=== PATIENT | male | born 1935 | race Caucasian/White ===

== ENCOUNTER 2021-06-29 22:57 | Emergency (ER) | payer OTHER ==
[~2021-06-29] VITALS: Ht 190.5 cm; Wt 136.1 kg
--- NOTE | ~2021-06-29 | EMS ---
[address] [address] EMS Patient Care Report Name: CATHERINE KEVIN Room #: REG M.R.#: [id number] Admission: 06/29/21 Attend Phys: Discharge: Date of : 37 Report #: [id number] THIS REPORT FOR: //name// Report Transmitted: 06/29/2021 22:43 EMS Care Summary [place], [place]/[facility] Incident [id number] @ 06/29/2021 22:23 Incident Location [address] [facility] Patient CATHERINE KEVIN Male, 86 Years 1935 Patient Address [address] [address] Patient History Pacemaker/AICD, Patient Allergies No known allergies, Patient Medications None Reported, Chief Complaint ear and finger lac/fall Disposition Transported No Lights/[place] Dispatch Reason Falls Transported To [facility] Narrative pt found seated on floor in doorway to bedroom. he is a&o and reports he stumbled and fell, hitting his head on the door way. no LOC. pt saw him fall and called for help. pt has swelling and lac to R ear and lac to tip of [address] [address] EMS Patient Care Report Name: CATHERINE KEVIN Room #: REG MTaiR.#: [id number] Admission: 06/29/21 Attend Phys: Discharge: Date of : 37 Report #: [id number] little finger on R hand. he denies any other injury. he is initially refusing to go to ER. pt eventually agrees when we explain the reason he needs an exam. we assist him to a standing position. he is able to pivot to cot, VS, transport w/o incident to [facility]. Initial Vitals @22:45P: 80,R: 16,BP: 123/66,Pain: 4/10,GCS: 15,SpO2: 95,Revised Trauma: 12, Assessments @22:32MENTAL:No Abnormalities,SKIN:No Abnormalities,HEENT:Head/Face: HEM,Head/Face: Other,LUNG SOUNDS:General: No Abnormalities,ABDOMEN:General: No Abnormalities,PELVIS//GI:No Abnormalities,EXTREMITIES:Right Arm: HEM,Right Arm: Other,Left Leg: Other,Right Leg: Other,PULSE:NEURO:No Abnormalities, Impression Injury of Ear Procedures @22:32 ALS Assessment Response: UnchangedSucceeded @22:35 Bandaging Response: UnchangedSucceeded @22:38 Stretcher Response: Unchanged Timeline 22:22,Call Received 22:22,Dispatch Notified 22:23,Dispatched 22:24,En Route 22:30,On Scene 22:32,At Patient 22:32,ALS Assessment,Response: UnchangedSucceeded, 22:35,Bandaging,Response: UnchangedSucceeded, 22:38,Stretcher,Response: Unchanged 22:45,BP: 123/66 M,PULSE: 80,RR: 16 R,SPO2: 95 Ox,ETCO2: ,BG: ,PAIN: 4,GCS: 15, 22:51,Depart Scene 22:54,At Destination 23:05,Call Closed Disclaimer v1.1 Copyright 2021 [employer] This EMS Care Summary contains data elements from the applicable legal record (which may be displayed differently). It is designed to provide pertinent information for the following purposes: continuity of care, clinical quality, and state data reporting. The complete legal record is available to ED staff and administrators of the receiving hospital in [employer] Patient Tracker. All data is provided "as is."
--- NOTE | ~2021-06-29 | EMS ---
[address] [address] EMS Patient Care Report Name: CATHERINE KEVIN Room #: DEP WESLEY Cavazos#: [id number] Admission: 06/29/21 Attend Phys: Discharge: 06/30/21 Date of : 37 Report #: [id number] THIS REPORT FOR: //name// Report Transmitted: 07/01/2021 11:33 EMS Care Summary [place], [place]/[facility] Incident [id number] @ 06/29/2021 22:23 Incident Location [address] [facility] Patient CATHERINE KEVIN Male, 86 Years 1935 Patient Address [address] [facility] [place] [address] Patient History Pacemaker/AICD, Patient Allergies No known allergies, Patient Medications None Reported, Chief Complaint ear and finger lac/fall Disposition Transported No Lights/[place] Dispatch Reason Falls Transported To [facility] Narrative pt found seated on floor in doorway to bedroom. he is a&o and reports he stumbled and fell, hitting his head on the door way. no LOC. pt saw him fall and called for help. pt has swelling and lac to R ear and lac to tip of [address] [address] EMS Patient Care Report Name: CATHERINE KEVIN Room #: DEP M.R.#: [id number] Admission: 06/29/21 Attend Phys: Discharge: 06/30/21 Date of : 37 Report #: [id number] little finger on R hand. he denies any other injury. he is initially refusing to go to ER. pt eventually agrees when we explain the reason he needs an exam. we assist him to a standing position. he is able to pivot to cot, VS, transport w/o incident to [facility]. Initial Vitals @22:45P: 80,R: 16,BP: 123/66,Pain: 4/10,GCS: 15,SpO2: 95,Revised Trauma: 12, Assessments @22:32MENTAL:No Abnormalities,SKIN:No Abnormalities,HEENT:Head/Face: Other,Head/Face: HEM,LUNG SOUNDS:General: No Abnormalities,ABDOMEN:General: No Abnormalities,PELVIS//GI:No Abnormalities,EXTREMITIES:Right Leg: Other,Left Leg: Other,Right Arm: Other,Right Arm: HEM,PULSE:NEURO:No Abnormalities, Impression Injury of Ear Procedures @22:32 ALS Assessment Response: UnchangedSucceeded @22:35 Bandaging Response: UnchangedSucceeded @22:38 Stretcher Response: Unchanged Timeline 22:22,Call Received 22:22,Dispatch Notified 22:23,Dispatched 22:24,En Route 22:30,On Scene 22:32,At Patient 22:32,ALS Assessment,Response: UnchangedSucceeded, 22:35,Bandaging,Response: UnchangedSucceeded, 22:38,Stretcher,Response: Unchanged 22:45,BP: 123/66 M,PULSE: 80,RR: 16 R,SPO2: 95 Ox,ETCO2: ,BG: ,PAIN: 4,GCS: 15, 22:51,Depart Scene 22:54,At Destination 23:05,Call Closed Disclaimer v1.1 Copyright 2021 [employer] This EMS Care Summary contains data elements from the applicable legal record (which may be displayed differently). It is designed to provide pertinent information for the following purposes: continuity of care, clinical quality, and state data reporting. The complete legal record is available to ED staff and administrators of the receiving hospital in [employer] Patient Tracker. All data is provided "as is."
[2021-06-30 03:00] VITALS: BP 106/59
== END 2021-06-30 07:40 | disposition home or self-care (01) ==
LOC: ER 22:57
DX: S01.311A Laceration without foreign body of right ear, initial encounter (principal); S63.286A Dislocation of proximal interphalangeal joint of right little finger, initial encounter; W45.8XXA Other foreign body or object entering through skin, initial encounter; Y93.89 Activity, other specified; Y92.89 Other specified places as the place of occurrence of the external cause; Y99.8 Other external cause status

== ENCOUNTER 2021-07-02 14:38 | Emergency (ER) | payer OTHER ==
[~2021-07-02] VITALS: Ht 190.5 cm; Wt 136.1 kg
--- NOTE | ~2021-07-02 | EMS ---
[place] [address] EMS Patient Care Report Name: CATHERINE KEVIN Room #: DEP WESLEY Cavazos#: [id number] Admission: 07/02/21 Attend Phys: Discharge: 07/02/21 Date of : 37 Report #: [id number] THIS REPORT FOR: //name// Report Transmitted: 07/06/2021 14:25 EMS Care Summary [place], [place]/[facility] Incident [id number] @ 07/02/2021 14:02 Incident Location [address] [email or web address] Patient CATHERINE KEVIN Male, 86 Years 1935 Patient Address [address] [place] [address] Patient History Pacemaker/AICD, Patient Allergies No known allergies, Patient Medications None Reported, Chief Complaint INCREASED FALLS Disposition Transported No Lights/[place] Dispatch Reason Falls Transported To [facility] Narrative MEDIC 30 WAS DISPATCHED TO THE ADDRESS LISTED PREVIOUSLY IN THIS REPORT ON A FALL. UPON ARRIVAL, EMS OBSERVED ONE MALE PATIENT SITTING UPRIGHT IN A CHAIR. PATIENT WAS TRACKING EMS UPON APPROACH. PATIENT'S INFORMED [place] [address] EMS Patient Care Report Name: CATHERINE KEVIN Room #: DEP [facility]#: [id number] Admission: 07/02/21 Attend Phys: Discharge: 07/02/21 Date of : 37 Report #: [id number] PATIENT HAD BEEN HAVING INCREASING FALLS AND THAT SHE WAS CONCERNED FOR FURTHER INJURY. PATIENT DENIED ANY INURY FROM FALLS EARLIER IN THE DAY. PATIENT WAS THEN PLACED ON THE COT AND MOVED TO THE AMBULANCE WITHOUT INCIDENT. ONCE IN THE AMBULANCE, VITAL SIGN MONITORING CONTINUED. ONCE ENROUTE TO THE RECEIVING FACILITY ([facility]), VITAL SIGN MONITORING CONTINUED AND RADIO REPORT WAS GIVEN. UPON ARRIVAL AT THE RECEIVING FACILITY, PATIENT WAS MOVED FROM THE AMBULANCE TO THE HOSPITAL COT WITHOUT INCIDENT. VERBAL REPORT WAS GIVEN TO THE PATIENT'S NURSE AND PATIENT CARE WAS TRANSFERRED. Initial Vitals @14:28P: 82,R: 16,BP: 132/83,Pain: 0/10,GCS: 15,SpO2: 98,Revised Trauma: 12, Assessments @14:18MENTAL:Person Oriented,Event Oriented,Time Oriented,Place Oriented,SKIN:HEENT:LUNG SOUNDS:ABDOMEN:PELVIS//GI:EXTREMITIES:PULSE:Radial: 2+ Normal,NEURO: Impression Need for continuous medical supervision Procedures @14:18 ALS Assessment Response: UnchangedSucceeded Timeline 13:59,Call Received 13:59,Dispatch Notified 14:02,Dispatched 14:03,En Route 14:14,On Scene 14:18,At Patient 14:18,ALS Assessment,Response: UnchangedSucceeded, 14:28,BP: 132/83 M,PULSE: 82,RR: 16 R,SPO2: 98 Ox,ETCO2: ,BG: ,PAIN: 0,GCS: 15, 14:30,Depart Scene 14:33,At Destination 14:58,Call Closed Disclaimer v1.1 Copyright 2021 [employer] This EMS Care Summary contains data elements from the applicable legal record (which may be displayed differently). It is designed to provide pertinent information for the following purposes: continuity of care, clinical quality, and state data reporting. The complete legal record is available to ED staff and administrators of the receiving hospital in [employer] Patient Tracker. All data is provided "as is."
[2021-07-02 15:53] LABS: INR 1.29; PROTIME 13.9 Seconds (10.5-12.1)
[2021-07-02 17:58] VITALS: BP 127/69
--- NOTE | 2021-07-03 07:45 | EKG ---
[place] [address] [facility] [place] [address] ELECTROCARDIOGRAM REPORT Name: CATHERINE KEVIN [id number] Admission: 07/02/21 Attend Phys: Discharge: Date of : 37 Report #: [id number] [facility] ED Test Date: 2021-07-02 Test Time: 15:04:48 Pat Name: CATHERINE KEVIN Department: Room: Gender: M Supervisor Area: FISH : 1935 Requested By: Solo Shoemaker Order Number: [id number] MD: Thony Barton Measurements Intervals [place] Rate: 61 P: MI: QRS: -75 QRSD: 190 T: 85 QT: 462 QTc: 466 Interpretive Statements Probable LV pacing. Clinical correlation recommended No previous ECG available for comparison Electronically Signed On 07-03-2021 7:45:23 FILLING HAND by Thony Barton [email or web address] <ELECTRONICALLY SIGNED> By: Thony Barton MD, [facility] 07/03/21 0745 [id number] [id number] Thony Barton MD, FACC /EPI
== END 2021-07-02 18:49 ==
LOC: ER 14:38
PROVIDERS: Emergency Medicine
DX: S00.431A Contusion of right ear, initial encounter (principal); W06.XXXA Fall from bed, initial encounter; Y93.89 Activity, other specified; Y92.89 Other specified places as the place of occurrence of the external cause; Y99.8 Other external cause status